=== PATIENT | male | born 1985 | race American Indian/Alaskan Native ===

== ENCOUNTER 2017-09-29 14:14 | Emergency (ER) | payer MEDICAID ==
[2017-09-29] MEDS ORDERED: Acetaminophen/oxyCODONE 325-5 MG Tab PO ONE (14:23)
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
--- NOTE | 2017-09-30 08:44 | CR ---
Left knee: Four views of the left knee were obtained. Comparison: No prior knee exam. Medial and lateral joint spaces are preserved. Patella is slightly elevated suggesting patellar tendon injury. Soft tissue swelling is noted in the area of the patellar tendon. No acute fracture or other abnormality is seen. Impression: 1. Elevated patella with soft tissue swelling seen in the region of the patellar tendon suggesting patellar tendon injury. Severity of patellar injury could be determined by MRI if clinically needed. 2. No acute bony abnormality is seen. Diagnostic code #3
== END 2017-09-29 15:35 | disposition home or self-care (01) ==
LOC: JD.ED 14:14
DX: S86.812A Strain of other muscle(s) and tendon(s) at lower leg level, left leg, initial encounter (principal); F17.210 Nicotine dependence, cigarettes, uncomplicated; X50.1XXA Overexertion from prolonged static or awkward postures, initial encounter
CPT/HCPCS: 73564; 99284; A9270; 99283

== ENCOUNTER 2017-10-18 08:44 | Day surgery (SDC) | payer MEDICAID ==
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
[~2017-10-18 08:44] MED LIST: Lidocaine 1%/Sod Bicarbonate in NS 8.4% 1 ML Syringe IDERM PRN; Sodium Chloride 0.9% 10 ML Syringe FLUSH PRN
[2017-10-18] MEDS ORDERED: Ondansetron 4 MG/2 ML SDV ONE (10:02)
[2017-10-18] MEDS ORDERED: HYDROmorphone 1 MG/ML Syringe ONE ×3 (10:02→13:35)
[2017-10-18] MEDS ORDERED: Propofol 200 MG/20 ML SDV ONE ×2 (10:02→11:26)
[2017-10-18] MEDS ORDERED: Ketorolac 30 MG/ML SDV ONE (10:02)
[2017-10-18] MEDS ORDERED: ceFAZolin 1 GM Vial ONE ×2 (10:02→11:41)
[2017-10-18] MEDS ORDERED: Midazolam 1 MG/ML 2 ML SDV ONE (10:03)
[2017-10-18] MEDS ORDERED: Ketamine 500 mg/10 ML MDV ONE (10:03)
[2017-10-18] MEDS ORDERED: fentaNYL 250 MCG/5 ML SDV ONE (10:03)
[2017-10-18] MEDS ORDERED: Iodine/Sodium Iodide 2% Tincture 30 ML Bottle ONE (10:12)
[2017-10-18] MEDS: Lactated Ringers 1,000 ML IV SCH ×2 (10:25→14:44)
[2017-10-18] MEDS ORDERED: Ondansetron 4 MG/2 ML SDV IVPUSH PRN ×2 (10:53→13:23)
[2017-10-18] MEDS ORDERED: Cyclobenzaprine 10 MG Tab PO PRN (10:53)
[2017-10-18] MEDS ORDERED: Acetaminophen/oxyCODONE 325-5 MG Tab PO PRN (10:53)
[2017-10-18] MEDS ORDERED: Ketorolac 30 MG/ML SDV IVPUSH PRN (10:53)
[2017-10-18] MEDS ORDERED: HYDROmorphone 0.5 MG/0.5 ML Syringe IVPUSH PRN (10:53)
[2017-10-18] MEDS ORDERED: Vancomycin 2 GM in Sodium Chloride 0.9% 500 ML IV SCH (11:00)
[2017-10-18] MEDS ORDERED: Morphine 15 MG Tab.ER PO SCH (11:00)
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
[2017-10-18] MEDS ORDERED: fentaNYL 100 MCG/2 ML SDV ONE ×3 (12:21→13:27)
[2017-10-18] MEDS ORDERED: Lactated Ringers 1,000 ML ONE (13:38)
--- NOTE | 2017-10-18 14:14 | PCM.POSTAN ---
POST ANESTHESIA ASSESSMENT - MENTAL STATUS Mental Status: Alert, Oriented - VITAL SIGNS Pulse Rate: 95 SaO2: 98 Resp Rate: 16 Blood Pressure: 153/93 Temperature: 37.3 C - RESPIRATORY Respiratory Status: Respiratory Rate WNL, Airway Patent, O2 Saturation Stable, Supplemental Oxygen - CARDIOVASCULAR CV Status: Pulse Rate WNL, Blood Pressure Stable - GASTROINTESTINAL GI Status: No Symptoms - PAIN Pain Score: 8 (pain meds given) - POST OP HYDRATION Hydration Status: Adequate & Stable
--- NOTE | 2017-10-18 14:15 | CR ---
Left knee: Two fluoroscopic spot views of the left knee were obtained in the operating room utilizing C-arm device. Comparison: Previous left knee exam of 09/29/17 and prior MRI of 10/08/17. Study shows fixation of the patella to the anterior tibia with orthopedic hardware. Fluoroscopy time is given as 15.0 seconds. Impression: 1. Operative study as noted above. Diagnostic code #2
[2017-10-18] MEDS: fentaNYL 100 MCG/2 ML SDV IVPUSH PRN ×4 (14:17→14:54)
[2017-10-18] MEDS: HYDROmorphone 0.5 MG/0.5 ML Syringe IVPUSH PRN ×2 (14:20→14:31)
[2017-10-18] MEDS ORDERED: SODIUM CHLORIDE 0.9% IV ONE (14:45)
[2017-10-18] MEDS ORDERED: METOPROLOL TARTRATE IV ONE (14:45)
[2017-10-18] MEDS: Metoprolol Tartrate 5 MG/5 ML SDV IVPUSH ONE ×5 (14:56→15:18)
--- NOTE | 2017-10-21 08:01 | OR ---
DATE OF OPERATION: 10/18/2017 SURGEON: Chris Vela MD PREOPERATIVE DIAGNOSIS: Acute rupture avulsion patellar tendon, left patella. POSTOPERATIVE DIAGNOSIS: Acute rupture avulsion patellar tendon, left patella. ANESTHESIA: General. OPERATION PERFORMED: Open reduction with open repair of avulsed ruptured patellar tendon, left patella. DESCRIPTION OF PROCEDURE: The patient was taken to the operative room in supine position, was placed under general anesthesia. The left leg was then prepped and draped by standard technique, and after prepping and draping, the operation began with a midline incision being used with the incision beginning approximately 4 cm above the superior pole of patella and extending distally down to the tibial tubercle on the left knee penetrating through the skin and subcutaneous tissues. The fascia over the patella was then mobilized off the patella, exposing the area of avulsion. There was significant blood hematoma formation, which was removed from the joint. Once that was completed, the operation proceeded with evaluation of the avulsion itself. It was a direct avulsion from the bone. The operation proceeded then with prepping of the distal pole of the patella by removing the soft tissues and then creating a groove for reattachment of the tendon back into the bone with a groove being taken down to the cancellous bone. Once that was accomplished, the operation proceeded with freshening the edge of the avulsed tendon, removing the tissues that already had started to form a scar type tissue creating a fresh end and then the operation proceeded with drill holes being placed through the patella for drill holes and for reattachment of the suture. Three #5 FiberWire sutures were used using a repair of the tendon to be able to bring it back up into the groove area on the patella itself. With the drill holes being placed, there was also a horizontal drill hole placed for a stabilization wire to be used. The operation then proceeded with threading the sutures up through the 4 drill holes, 1 suture set on the inside, 1 set on the outside, and 1 set on the middle creating a 3 paired repair. It was noted that there was still some tension with a tight quad and that the operation had proceeded to reinforce this whole construct with a wire being placed through the patella horizontally and then 1 end attached to a tibial cortical screw just below the tibial tubercle and then putting a 2nd screw on the opposite side and bringing the wire through the patella like in a horseshoe type fashion and then tightening down the wire such that the patella was end on end with the patellar tendon. Once that was completed, the operation proceeded with the repair and tying of the #5 FiberWire on the patella, the superior pole area. Then, the operation proceeded with the repair of the rent on each side using portions of the #5 FiberWire and then also #1 Vicryl running suture was placed across the edge of the patella to close the defect itself and then the operation proceeded with thorough evaluation. Thorough irrigation with iodine was used all through the procedure. The operation then proceeded with closure of the deep tissues after it was inspected. The repair and then also the support cerclage type wire that was used, and once that was found to be very satisfactory with no movement of the patella, the knee could be bent approximately 20 degrees before significant tension was seen in the repair site. Operation then proceeded with closure of deep tissues with #1 Vicryl, subcu tissues with 2-0 Vicryl, and skin with skin aida. The patient was placed in a Ca dressing and knee immobilizer, tolerated this whole procedure well. He left the operating room in stable condition to his room for recovery. ESTIMATED BLOOD LOSS: MMODAL /[id number]
== END 2017-10-18 16:30 | disposition home or self-care (01) ==
LOC: JD.SDS 08:44
PROVIDERS: ATTEND Specialist
DX: S76.192A Other specified injury of left quadriceps muscle, fascia and tendon, initial encounter (principal); S76.112A Strain of left quadriceps muscle, fascia and tendon, initial encounter; I10 Essential (primary) hypertension; F17.210 Nicotine dependence, cigarettes, uncomplicated; X58.XXXA Exposure to other specified factors, initial encounter
CPT/HCPCS: 27380; 36415; 76000; 80053; 85025; 93005; A9270; C1713; J0690; J1170; J1885; J2250; J2405; J3010; J3370; J7040; J7120; J2704; J3490

== ENCOUNTER 2018-05-20 07:11 | Day surgery (SDC) | payer MEDICAID ==
--- NOTE | 2018-04-21 17:48 | HP ---
DATE OF ADMISSION: 05/06/18 HISTORY OF PRESENT ILLNESS: This is the second orthopedic outpatient admission for surgery for this 33-year- old male, who is being scheduled for a removal of wire and screw fixation, left knee. The patient with severe pain in and around the knee area. He had previously undergone a surgical reconstruction repair of a patellar tendon rupture on 11/11/2017, failed to return back to the clinic since that time and was seen in the Orthopedic Clinic on 04/21/2018 with significant pain in the area of the patella tendon, wire fixation site and also screw fixation site. The patient had x-rays taken, the patella tendon area was intact. The patient is now scheduled for screw and wire removal. Procedure has been outlined to him, and he understands that. Especially, he understands the risk of re-rupture if he would become too active and would forcibly change or put pressure on the tendon repair. With that, he does understand and has consented to surgery. The patient is treated through the [facility]. The patient's bleeding history, negative. He has a negative blood clot history. ALLERGIES: No known drug allergies. PAST MEDICAL HISTORY: He has been a relatively healthy 33-year-old male who has a history of high blood pressure. CURRENT MEDICATIONS: Current medications include chlorthalidone and also lisinopril. SOCIAL HISTORY: Smoking history is one pack per day. Alcohol, he notes no alcohol use. PHYSICAL EXAMINATION: GENERAL: A well-developed and well-nourished 33-year-old male in moderate distress. HEAD, EYES, EARS, NOSE, AND MOUTH: Normocephalic. NECK: Supple. CHEST: Clear. COR: Regular rate. ABDOMEN: Soft. : Intact. MUSCULOSKELETAL: Examination of the left knee reveals positive pain to palpation at the screw fixation site on the tibia and also paralleling the wire fixation up to the patella tendon. RADIOLOGY: X-rays of the left knee shows intact patella and screw fixation and wire fixation device. PLAN: Plan will be for the patient to be scheduled for a wire and screw removal of the left knee-this would be a removal of hardware, left knee. Again, the procedure has been outlined to him and also the postoperative risk of re-rupture of the patella tendon and that he could inadvertently cause stress or strain to that area. He understands that and did consent to surgery. MMODAL /[id number] BRENDA
[~2018-05-20 07:11] MED LIST changes: +Ketorolac 30 MG/ML SDV ONE; +Lactated Ringers 1,000 ML IV SCH; +Midazolam 1 MG/ML 2 ML SDV ONE; +Ondansetron 4 MG/2 ML SDV ONE; +Propofol 200 MG/20 ML SDV ONE; +fentaNYL 250 MCG/5 ML SDV ONE
[2018-05-20] MEDS ORDERED: ceFAZolin 1 GM Vial ONE (07:22)
[2018-05-20] MEDS ORDERED: Bupivacaine 0.5%/EPINEPHrine 1:200,000 50 ML MDV ONE (07:32)
[2018-05-20] MEDS ORDERED: Iodine/Sodium Iodide 2% Tincture 30 ML Bottle ONE (07:32)
--- NOTE | 2018-05-20 07:39 | PCM.PREANE ---
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, awaiting results of new EKG) Gastrointestinal: No Symptoms, Other (denies heartburn or reflux) - Physical Assessment NPO Status Date: 05/19/18 NPO Status Time: 23:45 Pulse: 82 O2 Sat by Pulse Oximetry: 97 Respiratory Rate: 20 Blood Pressure: 152/101 Weight: 127 kg ASA Class: 3 Mental Status: Alert & Oriented x3 Airway Class: Mallampati = 2 Thyro-Mental Finger Breadths: 3 Mouth Opening Finger Breadths: 3 ROM/Head Extension: Full Lungs: Clear to Auscultation, Normal Respiratory Effort Cardiovascular: Regular Rate, Regular Rhythm - Allergies Allergies/Adverse Reactions: Allergies Allergy/AdvReac Type Severity Reaction Status Date / Time No Known Allergies Allergy Verified 05/05/18 15:47 - Blood Blood Available: No Product(s) Available: None - Anesthesia Plan Pre-Op Medication Ordered: None - Acknowledgements Anesthesia Type Planned: General Anesthesia Pt an Appropriate Candidate for the Planned Anesthesia: Yes Alternatives and Risks of Anesthesia Discussed w Pt/Guardian: Yes Pt/Guardian Understands and Agrees with Anesthesia Plan: Yes PreAnesthesia Questionnaire HEENT History: Reports: None Cardiovascular History: Reports: Hypertension Respiratory History: Reports: None Gastrointestinal History: Reports: None Genitourinary History: Reports: None [employer]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: 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 Musculoskeletal History: Reports: Other (See Below) Other Musculoskeletal History: nail gun injury, patella tendon tear Neurological History: Reports: None Psychiatric History: Reports: None Endocrine/Metabolic History: Reports: None Hematologic History: Reports: None Immunologic History: Reports: None Oncologic (Cancer) History: Reports: None Dermatologic History: Reports: None - Past Surgical History Head Surgeries/Procedures: Reports: None HEENT Surgical History: Reports: None Cardiovascular Surgical History: Reports: None Respiratory Surgical History: Reports: None GI Surgical History: Reports: None Female Surgical History: Reports: None Male Surgical History: Reports: None Endocrine Surgical History: Reports: None Neurological Surgical History: Reports: None Musculoskeletal Surgical History: Reports: Other (See Below) Other Musculoskeletal Surgeries/Procedures:: left wrist surgery Oncologic Surgical History: Reports: None Dermatological Surgical History: Reports: None - SUBSTANCE USE Smoking Status *Q: Current Every Day Smoker Recreational Drug Use History: Yes Recreational Drug Type: Reports: Marijuana/Hashish - HOME MEDS Home Medications: Home Meds Chlorthalidone 25 mg PO DAILY 05/05/18 [History] Lisinopril 20 mg PO DAILY 05/05/18 [History] amLODIPine Besylate [Amlodipine Besylate] 5 mg PO DAILY 05/05/18 [History] - CURRENT (IN HOUSE) MEDS Current Meds: Current Medications Lactated Ringer's (Ringers, Lactated) 1,000 mls @ 125 mls/hr IV ASDIRECTED SANDIP Stop: 05/20/18 23:00 Vancomycin HCl 2 gm/ Sodium (Chloride) 250 mls @ 250 mls/hr IV ONETIME ONE Stop: 05/20/18 08:05 Lidocaine/Sodium Bicarbonate (Buffered Lidocaine 1% In Ns 8.4%) 0.25 ml IDERM ONETIME PRN PRN Reason: Prior to IV Start Stop: 05/20/18 18:00 Sodium Chloride (Saline Flush) 10 ml FLUSH ASDIRECTED PRN PRN Reason: Keep Vein Open Stop: 05/20/18 18:00 Discontinued Medications Cefazolin Sodium (Ancef) Confirm Administered Dose 3 gm .ROUTE .STK-MED ONE Stop: 05/20/18 07:23 Fentanyl (Sublimaze) Confirm Administered Dose 250 mcg .ROUTE .STK-MED ONE Stop: 05/20/18 07:03 Lactated Ringer's (Ringers, Lactated) 1,000 mls @ 125 mls/hr IV ASDIRECTED SANDIP Stop: 05/06/18 18:00 Ketorolac Tromethamine (Toradol) Confirm Administered Dose 30 mg .ROUTE .STK- MED ONE Stop: 05/20/18 07:02 Lidocaine/Sodium Bicarbonate (Buffered Lidocaine 1% In Ns 8.4%) 0.25 ml IDERM ONETIME PRN PRN Reason: Prior to IV Start Stop: 05/06/18 18:00 Midazolam HCl (Versed 1 Mg/Ml) Confirm Administered Dose 2 mg .ROUTE .STK-MED ONE Stop: 05/20/18 07:03 Ondansetron HCl (Zofran) Confirm Administered Dose 4 mg .ROUTE .STK-MED ONE Stop: 05/20/18 07:02 Propofol (Diprivan 20 Ml) Confirm Administered Dose 200 mg .ROUTE .STK-MED ONE Stop: 05/20/18 07:03 Sodium Chloride (Saline Flush) 10 ml FLUSH ASDIRECTED PRN PRN Reason: Keep Vein Open Stop: 05/06/18 18:00
[2018-05-20] MEDS ORDERED: fentaNYL 100 MCG/2 ML SDV ONE (07:42)
[2018-05-20] MEDS ORDERED: Acetaminophen/HYDROcodone 325-5 MG Tab PO PRN (07:44)
[2018-05-20] MEDS ORDERED: Ketorolac 15 MG/ML SDV IVPUSH PRN (07:44)
[2018-05-20] MEDS ORDERED: Ondansetron 4 MG/2 ML SDV IVPUSH PRN ×2 (07:44→09:16)
[2018-05-20] MEDS ORDERED: Vancomycin 2 GM in Sodium Chloride 0.9% 500 ML IV ONE (07:45)
[2018-05-20] MEDS ORDERED: Propofol 200 MG/20 ML SDV ONE (08:12)
[2018-05-20] MEDS ORDERED: HYDROmorphone 0.5 MG/0.5 ML Syringe ONE (08:19)
--- NOTE | 2018-05-20 09:15 | PCM.POSTAN ---
POST ANESTHESIA ASSESSMENT - MENTAL STATUS Mental Status: Alert, Oriented - VITAL SIGNS Pulse Rate: 91 SaO2: 95 Resp Rate: 15 Blood Pressure: 118/75 Temperature: 37.2 C - RESPIRATORY Respiratory Status: Respiratory Rate WNL, Airway Patent, O2 Saturation Stable, Supplemental Oxygen - CARDIOVASCULAR CV Status: Pulse Rate WNL, Blood Pressure Stable - GASTROINTESTINAL GI Status: No Symptoms - PAIN Pain Score: 5 (pain meds given) - POST OP HYDRATION Hydration Status: Adequate & Stable
[2018-05-20] MEDS ORDERED: diphenhydrAMINE 50 MG/ML SDV IVPUSH PRN (09:16)
[2018-05-20] MEDS ORDERED: HYDROmorphone 0.5 MG/0.5 ML Syringe IVPUSH PRN (09:16)
[2018-05-20] MEDS ORDERED: fentaNYL 100 MCG/2 ML SDV IVPUSH PRN (09:16)
--- NOTE | 2018-05-20 10:00 | PCM48HPAN ---
Post Anesthesia Note - EVALUATION WITHIN 48HRS OF ANESTHETIC Vital Signs in Normal Range: Yes Patient Participated in Evaluation: Yes Respiratory Function Stable: Yes Airway Patent: Yes Cardiovascular Function Stable: Yes Hydration Status Stable: Yes Pain Control Satisfactory: Yes Nausea and Vomiting Control Satisfactory: Yes Mental Status Recovered: Yes Pulse Rate: 91 SaO2: 99 Resp Rate: 12 Temperature: 37.2 C Blood Pressure: 118/75 Pulse Rate: 89
--- NOTE | 2018-05-20 10:10 | CR ---
Left knee: Four fluoroscopic spot views were obtained of the left knee. Comparison: Prior left knee exam of 04/21/18. Previous orthopedic hardware affixing the patella to the tibia has been removed. Fluoroscopy time is given as 12.9 seconds. Impression: 1. Operative study as noted above. Diagnostic code #2
--- NOTE | 2018-05-20 12:23 | OR ---
DATE OF OPERATION: 05/20/2018 SURGEON: Chris Vela MD PREOPERATIVE DIAGNOSIS: Surgical repair, ruptured patellar tendon of left knee with hardware. POSTOPERATIVE DIAGNOSIS: Surgical repair, ruptured patellar tendon of left knee with hardware. ANESTHESIA: General. OPERATION PERFORMED: Removal of hardware, left knee patellar tendon. DESCRIPTION OF PROCEDURE: The patient was taken to the operative room in a supine position. He was placed under general anesthesia. The left leg was then prepped and draped by standard technique for operational approach to the knee itself. After prepping and draping, the operation proceeded with identification of the screw fixation on the tibia using fluoroscopy. Once the screw insertion sites were identified, an #11 blade was used to make an incision over the screw directly and carrying the incision directly down to the surgical scarring. Incision was made on both sides. Once that was completed, a 15 blade was then used for dissection of the screw head. Once they were identified on both sides. They were removed in a retrograde fashion with their washers. The end of the wire was then exposed and then this was reflected up into the wound area on both sides and with gentle pulling, was found to be loose through the patella. The wire was then cut on the lateral side and then pulled through to the medial side and out the medial incision. Once that was completed, hard copy x-rays were taken of the knee, and these were found to be satisfactory. The operation proceeded with closure of the deep tissues with 2-0 Vicryl and skin with skin aida. The patient was placed in standard dressings and a knee immobilizer. He tolerated this whole procedure well. He left the operating room in a stable condition to his room for recovery. ESTIMATED BLOOD LOSS: MMODAL /[id number]
== END 2018-05-20 10:40 | disposition home or self-care (01) ==
LOC: JD.SDS 07:11
PROVIDERS: ATTEND Specialist
DX: T84.84XA Pain due to internal orthopedic prosthetic devices, implants and grafts, initial encounter (principal); I10 Essential (primary) hypertension; F17.210 Nicotine dependence, cigarettes, uncomplicated; Z79.899 Other long term (current) drug therapy
CPT/HCPCS: 20680; 76000; 93005; A9270; J0690; J1170; J1885; J2250; J2405; J2704; J3010; J3370; J3490; J7040; J7120

== ENCOUNTER 2025-05-26 20:58 | Emergency (ER) | payer SELFPAY ==
[2025-05-27] MEDS: Ketorolac 60 MG/2 ML SDV IM ONE (00:27)
[2025-05-27] MEDS: Orphenadrine 60 MG/2 ML Inj IM ONE (00:27)
[2025-05-27 00:38] LABS: APPEARANCE,URINE SLT CLOUDY (Clear); GLUCOSE,URINE NEGATIVE (Negative); OCCULT BLOOD,URINE NEGATIVE (Negative)
== END 2025-05-27 02:53 | disposition home or self-care (01) ==
LOC: JD.ED 20:58
DX: S39.012A Strain of muscle, fascia and tendon of lower back, initial encounter (principal); I10 Essential (primary) hypertension; F17.210 Nicotine dependence, cigarettes, uncomplicated; Z79.899 Other long term (current) drug therapy; Z86.16 Personal history of COVID-19; X50.0XXA Overexertion from strenuous movement or load, initial encounter; Y93.64 Activity, baseball
CPT/HCPCS: 81001; 96372; 99283; A9270; J1885; J2360